=== PATIENT | male | born 1975 | race Caucasian/White ===

== ENCOUNTER → 2023-02-16 | Outpatient (CLI) | payer MEDICARE, OTHER ==
--- NOTE | 2023-02-16 22:11 | MR ---
EXAMINATION TYPE: MR shoulder LT wo con DATE OF EXAM: 02/16/2023 COMPARISON: None. HISTORY: Left shoulder pain, dislocation and spur. Injury in November. TECHNIQUE: Multiplanar, multisequence imaging of the left shoulder is performed without contrast. FINDINGS: Rotator Cuff: Some increased signal in the supraspinatus and infraspinatus tendons but they remain in tact. Rotator cuff muscle bulk is preserved Acromioclavicular Joint: Mild to moderate narrowing with moderate capsular hypertrophy. Mass effect o n underlying supraspinatus muscle sagittal image 16, less prominent on coronal images. Glenohumeral Joint: Moderate to large size joint effusion. There is deformity of the left humeral hea d. There is deformity of the long duration of the osseous glenoid Labrum: The labrum appears grossly intact given limitation of non-arthrogram study. Biceps Tendon: The long head of biceps is in normal location within bicipital groove. Intracapsular p ortion shows increased signal and thickening. Bone marrow signal: Overall heterogeneous diminished T1 and increased T2 signal through the humeral h ead extending into the proximal metaphysis. Other: No additional significant abnormality is appreciated. IMPRESSION: 1. Humeral head deformity or advanced osteonecrosis is present. Abnormal bone marrow edema through th e humeral head extends into the proximal metaphysis. 2. Moderate to large sized glenohumeral joint effusion. 3. Some tendinosis of the supraspinatus and infraspinatus tendons along with intracapsular portion of the biceps tendon.
== END | disposition home or self-care (01) ==
LOC: RADMRIMAIN 10:34
PROVIDERS: ATTEND Internal Medicine
DX: M25.412 Effusion, left shoulder (principal); M67.814 Other specified disorders of tendon, left shoulder; M87.822 Other osteonecrosis, left humerus